=== PATIENT | female | born 1950 | race Caucasian/White ===

== ENCOUNTER → 2016-11-05 08:35 | Day surgery (SDC) | payer OTHER ==
[~2016-11-05 08:35] MED LIST: Buffered Lidocaine 1% SYRIN* 3 ML/SYR SYRINGE INTRADERM ONE; Lidocain 1% EPI 1:100,000 * 30 ML MDV ONE; Lidocaine 2% PF* 5 ML VIAL ONE; Methylene Blue 1%* 10 ML VIAL ONE; Midazolam* 1 MG/ML 2 ML VIAL (2 MG) ONE; Midazolam* 1 MG/ML 5 ML VIAL (5 MG) ONE; Petrolatum 5 GM* 5 GM PACKET ONE; Propofol* 10 MG/ML 20 ML BTL IV PUSH ONE; ceFAZolin 2 GM PREMIX(*) 2 GM/50 ML BAG IVPB ONE; fentaNYL* 50 MCG/ML 2 ML VIAL (100 MCG VIAL) ONE
[2016-11-05 12:00] VITALS: BP 112/69
== END | disposition home or self-care (01) ==
LOC: OR 08:35
PROVIDERS: ATTEND Plastic Surgery
DX: C44.02 Squamous cell carcinoma of skin of lip (principal)
CPT/HCPCS: 88305; 88329; A9270-GY; J0690; J2250; J2704; J3010

== ENCOUNTER 2022-05-10 21:29 | Observation (INO) ==
[2022-05-10] MEDS ORDERED: Albuterol HFA INHALER 8 gm MDI INH ONE (22:05)
[2022-05-10] MEDS ORDERED: methylPREDNISolone SOD SUCC 125 mg 2 ML VIAL IV ONE (22:05)
[2022-05-10 22:11] LABS: ABS Eosinophils 0.1 10^3/ul (0-0.6); ABS Lymphocytes 0.5 10^3/ul (1.0-4.8); ABS Monocytes 0.5 10^3/ul (0-0.8); Eosinophil % 1.8 %; Hematocrit 43 % (35-47); Hemoglobin 14.2 g/dL (12.0-16.0); Lymphocyte % 5.9 %; Mean Corpuscular HGB Conc 33 g/dL (31-36); Mean Corpuscular Hemoglobin 29 pg (27-31); Mean Corpuscular Volume 88 fL (80-97); Nucleated Red Blood Cells % 0.2; Platelet Count 170 10^3/uL (150-450); Red Blood Count 4.89 10^6 /uL (3.70-4.87); Red Cell Distribution Width 14 % (10-15); White Blood Count 8.1 10^3/uL (3.5-10.8)
[2022-05-10 22:40] LABS: INR 1.01 (0.89-1.11)
[2022-05-10 22:40] LABS: High Sens Troponin Baseline < 3 pg/mL (<15)
[2022-05-10 23:06] LABS: ALT 12 U/L (7-52); AST 18 U/L (13-39); Albumin 4.6 g/dL (3.2-5.2); Alkaline Phosphatase 74 U/L (35-149); Anion Gap 12 mmol/L (2-11); Blood Urea Nitrogen 10 mg/dL (6-24); C Reactive Protein 77.51 mg/L (<8.01); CO2 Carbon Dioxide 24 mmol/L (22-32); Chloride 103 mmol/L (101-111); Globulin 2.3 g/dL (2-4); Glucose 100 mg/dL (70-100); Lipase 50 U/L (11.0-82.0); Potassium 4.3 mmol/L (3.5-5.0); Sodium 139 mmol/L (135-145); Total Protein 6.9 g/dL (6.4-8.9); eGFR CKD-EPI 79.7 (>60)
[2022-05-10 23:13] LABS: Calcium 9.8 mg/dL (8.6-10.3)
[2022-05-10] MEDS ORDERED: Albuterol 2.5mg/3 ml (0.083%) NEB.SOLN INH ONE (23:28)
[2022-05-11] MEDS ORDERED: Iohexol 350 (CONTRAST) 500 ML MDV IV ONE (00:40)
[2022-05-11] MEDS ORDERED: Albuterol/Ipratropium NEB.SOL (2.5/0.5 MG) 3 ML NEB.SOLN INH ONE (02:50)
[2022-05-11] MEDS ORDERED: Ondansetron 4 mg VIAL 2 MG/ML 2 ml VIAL IV PRN (03:14)
[2022-05-11] MEDS ORDERED: Enoxaparin 40 MG/0.4 ML SYR SUBCUT SCH ×2 (04:00→09:00)
[2022-05-11] MEDS: Albuterol HFA INHALER 8 gm MDI INH SCH ×3 (07:14→11:10)
[2022-05-11 07:20] VITALS: BP 110/49
== END 2022-05-11 11:03 | disposition home or self-care (01) ==
LOC: EDHOLD 21:29 → ED 21:29 → SUATTDRO 05-11 03:14 → EDHOLD 05-11 05:04 → MED 05-11 07:06
PROVIDERS: ADMIT Student in an Organized Health Care Education/Training Program; ATTEND Internal Medicine